=== PATIENT | male | born 1960 | race Caucasian/White ===

== ENCOUNTER 2017-10-12 17:33 | Emergency (ER) | payer BC ==
[~2017-10-12] VITALS: Ht 182.9 cm; Wt 114.4 kg
[~2017-10-12 17:33] MED LIST: AMITRIPTYLIN50 MG PO; ENALAPR/HCTZ1 TA1 PO; GABAPENTIN100 MG PO; ISOSORBIDE DINI40 M1 PO; MELOXICAM7.5 MG PO; NIFEDIPINE10 MG PO; SIMVASTATIN40 MG PO
[2017-10-12] MEDS ORDERED: NIFEDIPINE10 M3 PO (18:32)
[2017-10-12] MEDS ORDERED: SIMVASTATIN40 MG PO (18:32)
[2017-10-12] MEDS ORDERED: ISOSORBIDE DINI40 M1 PO (18:32)
[2017-10-12] MEDS ORDERED: GABAPENTIN100 MG PO (18:32)
[2017-10-12] MEDS ORDERED: AMITRIPTYLIN50 MG PO (18:32)
[2017-10-12] MEDS ORDERED: ENALAPR/HCTZ1 TA1 PO (18:32)
[2017-10-12] MEDS ORDERED: MELOXICAM7.5 MG PO (18:32)
[2017-10-12 18:43] VITALS: BP 172/97
== END 2017-10-12 18:50 | disposition home or self-care (01) | DRG 305 ==
LOC: ED 17:33
DX: I10 Essential (primary) hypertension (principal); R50.9 Fever, unspecified; Z91.14 Patient's other noncompliance with medication regimen